=== PATIENT | female | born 1975 ===

== ENCOUNTER 2018-02-27 14:30 | Emergency (ER) | payer MEDICAID ==
[2018-02-27] MEDS ORDERED: Sodium Chloride 0.9% 1,000 ML IV SCH ×2 (15:15→18:15)
[2018-02-27 15:35] LABS: BASO % 0.4 % (0.0-2.0); EOS % 0.7 % (0.0-4.0); HEMOGLOBIN 11.7 g/dL (12.0-16.0); LYMPH # 1.4 K/uL (1.0-4.3); LYMPH % 19.3 % (20.0-40.0); MEAN CELL VOLUME 80.6 fl (81.0-99.0); MEAN CORPUSCULAR HGB CONC 33.5 g/dL (33.0-37.0); MEAN PLATELET VOLUME 8.3 fl (7.2-11.7); MONO # 0.5 K/uL (0.0-0.8); MONO % 7.1 % (0.0-10.0); NEUT # 5.2 K/uL (1.8-7.0); NEUT % 72.5 % (50.0-75.0); RBC 4.34 Mil/uL (3.80-5.20); RED CELL DISTRIBUTION WIDTH 14.8 % (11.5-14.5); WHITE BLOOD COUNT 7.2 K/uL (4.8-10.8)
[2018-02-27 15:45] LABS: ACETAMINOPHEN < 10.0 ug/ml (10.0-30.0); ALBUMIN 3.3 g/dL (3.5-5.0); ALT/SGPT 49 U/L (9-52); AST/SGOT 31 U/L (14-36); BLOOD UREA NITROGEN 7 mg/dl (7-17); CALCIUM 8.5 mg/dL (8.4-10.2); GFR AFRICAN-AMERICAN > 60; GFR NON-AFRICAN AMERICAN > 60; LIPASE 35 U/L (23-300); SALICYLATE < 1.0 mg/dl
[2018-02-27 15:52] LABS: PARTIAL THROMBOPLASTIN TIME 25.4 Seconds (25.6-37.1); PROTHROMBIN TIME 11.2 Seconds (9.8-13.1)
[2018-02-27] MEDS ORDERED: Potassium Chloride 20 mEq/15 ml LIQ UD PO ONE (16:05)
--- NOTE | 2018-02-27 16:13 | CT ---
PROCEDURE: CT HEAD WITHOUT CONTRAST. HISTORY: dizziness COMPARISON: None available. TECHNIQUE: Axial computed tomography images were obtained through the head/brain without intravenous contrast. Radiation dose: Total exam DLP = 764.4 mGy-cm. This CT exam was performed using one or more of the following dose reduction techniques: Automated exposure control, adjustment of the mA and/or kV according to patient size, and/or use of iterative reconstruction technique. FINDINGS: HEMORRHAGE: No intracranial hemorrhage. BRAIN: No mass effect or edema. No atrophy or chronic microvascular ischemic changes. VENTRICLES: Unremarkable. No hydrocephalus. CALVARIUM: Unremarkable. PARANASAL SINUSES: Non pneumatization of the right frontal sinus. No significant inflammatory changes. MASTOID AIR CELLS: Unremarkable as visualized. No inflammatory changes. OTHER FINDINGS: None. IMPRESSION: No acute intracranial pathology.
--- NOTE | 2018-02-27 16:23 | RAD ---
HISTORY: weakness COMPARISON: No prior. TECHNIQUE: Chest PA and lateral FINDINGS: LUNGS: No active pulmonary disease. PLEURA: No significant pleural effusion identified. No pneumothorax apparent. CARDIOVASCULAR: Normal. OSSEOUS STRUCTURES: No significant abnormalities. VISUALIZED UPPER ABDOMEN: Normal. OTHER FINDINGS: None. IMPRESSION: No active disease.
[2018-02-27] MEDS ORDERED: Potassium Chloride 20 mEq ER Tab PO ONE (16:46)
--- NOTE | 2018-02-27 16:48 | ED PDOC ---
HPI: General Adult Time Seen by Provider: 02/27/18 14:54 Chief Complaint (Nursing): Weakness/Neurological Deficit Chief Complaint (Provider): Weakness, Dizziness History Per: Patient, Family () History/Exam Limitations: no limitations Onset/Duration Of Symptoms: Hrs (x1) Current Symptoms Are (Timing): Still Present Additional Complaint(s): 43 y/o female, with a pmhx of type II diabetes and high cholesterol, presents for evaluation of feeling weak and dizzy x1 hour. Patient reports sudden onset of symptoms while cooking and association of symptoms with nausea. at bedside reports that patients blood sugar has been in 400s recently and that today she doubled her Metformin dosage (taking 1000mg BID instead of 500mg). Patient denies fever, headache, vomiting, diarrhea, chest or abdominal pain, changes in vision, numbness, back pain, or urinary symptoms, or sick contacts. Patient denies taking medication for her symptoms prior to arrival. Of note, patient arrived via EMS who report suspicion of drug use. LMP: now PMD: In [place] Past Medical History Reviewed: Historical Data, Nursing Documentation, Vital Signs Vital Signs: Last Vital Signs Temp 98.2 F 02/27/18 19:21 Pulse 104 H 02/27/18 19:21 Resp 20 02/27/18 19:21 BP 112/66 02/27/18 19:21 Pulse Ox 98 03/01/18 00:14 - Medical History PMH: Diabetes (type II), Hypercholesterolemia - Surgical History Surgical History: Cholecystectomy, (x6) Other surgeries: carpal tunnel - Family History Family History: States: Unknown Family Hx - Social History Current smoker - smoking cessation education provided: No Alcohol: None Drugs: Denies - Home Medications Home Medications: Ambulatory Orders Medication Instructions Recorded Meclizine [Meclizine*] 25 mg PO Q6 PRN #12 tab 02/27/18 Metoclopramide HCl [Reglan] 10 mg PO Q6 PRN #10 tablet 02/27/18 - Allergies Allergies/Adverse Reactions: Allergies Allergy/AdvReac Type Severity Reaction Status Date / Time No Known Allergies Allergy Verified 02/27/18 14:32 Review of Systems ROS Statement: Except As Marked, All Systems Reviewed And Found Negative Constitutional: Negative for: Fever Eyes: Negative for: Vision Change Cardiovascular: Negative for: Chest Pain Gastrointestinal: Positive for: Nausea. Negative for: Vomiting, Abdominal Pain , Diarrhea Genitourinary Female: Negative for: Dysuria, Frequency, Incontinence Musculoskeletal: Negative for: Back Pain Neurological: Positive for: Weakness, Dizziness. Negative for: Numbness, Headache Physical Exam - Reviewed Nursing Documentation Reviewed: Yes Vital Signs Reviewed: Yes - Physical Exam Comments: GENERALIZED APPEARANCE: Patient is somnolent, oriented x3, uncomfortable. (+) Obesity SKIN: Warm, dry; (-) cyanosis. HEAD: (-) scalp swelling or tenderness. EYES: (-) conjunctival pallor. Pupils equal and reactive. ENMT: Mucous membranes dry. Pharynx clear, uvula midline (-) erythema (-) exudate. Airway patent, (-) stridor. (-) Cerumen impaction bilaterally. TMs (-) erythema (-) bulging. NECK: Supple, FROM (-) tenderness, (-) stiffness, (-) lymphadenopathy. CHEST AND RESPIRATORY: (-) rales, (-) rhonchi, (-) wheezes; breath sounds equal bilaterally. Respirations even and nonlabored. HEART AND CARDIOVASCULAR: (-) irregularity; (-) murmur, (-) gallop. ABDOMEN AND GI: Soft; (-) distention, (-) tenderness, (-) rebound, (-) guarding , (-) palpable masses, (-) flank tenderness. EXTREMITIES: (-) deformity; (-) edema. Distal pulses: present. NEURO AND PSYCH: Mental status as above. shrinker: (-) nystagmus; EOMI and painless, (-) facial asymmetry; tongue midline. Strength symmetric. - Laboratory Results Result Diagrams: 02/27/18 15:28 02/27/18 15:28 Urine POC: Negative Urine dip results: Positive for: Blood (large (patient currently menstruating)) , Nitrate (Positive), Glucose (500), Protein (30). Negative for: Leukocyte Esterase, Ketones, Bilirubin - ECG O2 Sat by Pulse Oximetry: 98 (RA) Pulse Ox Interpretation: Normal Medical Decision Making Medical Decision Making: Impression: Weakness, Dizziness Plan: --CT head w/o contrast --EKG --Acetaminophen level --Alcohol serum --Ammonia --CMP --Drug screen --Lact acid, plasma --Lipase --Salicylate level --Urine --Troponin I --CBC --PTT/PT --CXR --Glucose, Blood, POC --Antivert 50mg PO --1LNS --Reglan 10mg IVP --case monitor --IV insertion --Reevaluation EKG: NSR at 96 bpm, no ST elevations, QTC 497 16:12 CT HEAD FINDINGS: HEMORRHAGE: No intracranial hemorrhage. BRAIN: No mass effect or edema. No atrophy or chronic microvascular ischemic changes. VENTRICLES: Unremarkable. No hydrocephalus. CALVARIUM: Unremarkable. PARANASAL SINUSES: Non pneumatization of the right frontal sinus. No significant inflammatory changes. MASTOID AIR CELLS: Unremarkable as visualized. No inflammatory changes. OTHER FINDINGS: None. IMPRESSION: No acute intracranial pathology. 16:21 CHEST X-RAY FINDINGS: LUNGS: No active pulmonary disease. PLEURA: No significant pleural effusion identified. No pneumothorax apparent. CARDIOVASCULAR: Normal. OSSEOUS STRUCTURES: No significant abnormalities. VISUALIZED UPPER ABDOMEN: Normal. OTHER FINDINGS: None. IMPRESSION: No active disease. 16:45 Labs reviewed, 3.1 Potassium. Potassium Chloride 20meq PO ordered. Patient with 1 episode of vomiting in ED. Reports continued nausea, but mild improvement of dizziness. Now reporting LUQ abdominal tenderness. Will order CT abdomen/pelvis with IV contrast. 1815 Patient resting comfortably at this time. Symptoms improved but still with LUQ and epigastric tenderness. Pending CT evaluation. Additional 1L NS bolus ordered. [address] scan. Udip reviewed, (+) nitrates. Urinalysis and urine culture ordered. Patient denies urinary symptoms. 1940 CT reviewed, radiology report follows EXAM: CT Abdomen and Pelvis With Intravenous Contrast EXAM DATE/TIME: 02/27/2018 4:47 PM CLINICAL HISTORY: 43 years old, female; Pain; Abdominal pain; Localized; Left; Prior surgery; Surgery date: 6+ months; Surgery type: Cholecystectomy; Patient HX: Generalized abd pain; Most pain lt side. Cholecystectomy 2003; Additional info: Epigastric, luq pain TECHNIQUE: Axial computed tomography images of the abdomen and pelvis with intravenous contrast. All CT scans at this facility use one or more dose reduction techniques, viz.: automated exposure control; ma/kV adjustment per patient size (including targeted exams where dose is matched to indication; i.e. head); or iterative reconstruction technique. CONTRAST: 98 mL of OMNIPAQUE administered intravenously. COMPARISON: No relevant prior studies available. FINDINGS: Lung bases: Unremarkable. No mass. No consolidation. ABDOMEN: Liver: Diffuse hepatic steatosis with hepatomegaly. Gallbladder and bile ducts: Cholecystectomy. No ductal dilation. Pancreas: Unremarkable. No mass. No ductal dilation. Spleen: Splenomegaly measures 13.8 cm. Small 0.7 cm hypodensity in the spleen is likely a cyst or hemangioma. Adrenals: Unremarkable. No mass. Kidneys and ureters: Unremarkable. No solid mass. No hydronephrosis. Stomach and bowel: Unremarkable. No obstruction. No mucosal thickening. PELVIS: Appendix: No findings to suggest acute appendicitis. Bladder: Unremarkable. No mass. Reproductive: Unremarkable as visualized. ABDOMEN and PELVIS: Intraperitoneal space: Unremarkable. No free air. No significant fluid collection. Bones/joints: No acute fracture. No dislocation. Soft tissues: Unremarkable. Vasculature: Unremarkable. No abdominal aortic aneurysm. Lymph nodes: Unremarkable. No enlarged lymph nodes. IMPRESSION: 1. Diffuse hepatic steatosis with hepatomegaly. Otherwise no acute obstructive or inflammatory process in the abdomen or pelvis. 2. Splenomegaly measures 13.8 cm. No perisplenic fluid. Thank you for allowing us to participate in the care of your patient. Dictated and Authenticated by: Gerardo Greer MD 02/27/2018 7:34 PM Eastern Time ([place] & [place]) 1940 Repeat BP: 112/66 On re-evaluation, patient reports resolution of symptoms. On exam, patient remains AAOx3, in no acute distress. Lungs clear to auscultation, cardiac RRR, abdomen soft, non-tender, repeat neuro exam shows no focal findings. Patient ambulating in ED with a steady, unassisted gait. Vitals stable, stable for discharge. Lab/Diagnostic results d/w the patient in great detail. Diagnosis of malaise, dizziness, abdominal pain, near syncope d/w the patient. Based on history, exam and diagnostic results, plan will be for outpatient follow up. Patient instructed to follow-up with pmd / referral provided / the clinic in 1- 2 days without fail. Advised to take medication as prescribed. Return to the emergency room at any time for any new or worsening symptoms. Patient states she fully agrees with and understands discharge instructions. States that she agrees with the plan and disposition. Verbalized and repeated discharge instructions and plan. I have given the patient opportunity to ask any additional questions. ----- Scribe Attestation: Documented by Marvin Cook, acting as a scribe for Ivett Geiger PA-C. Provider Scribe Attestation: All medical record entries made by the Scribe were at my direction and personally dictated by me. I have reviewed the chart and agree that the record accurately reflects my personal performance of the history, physical exam, medical decision making, and the department course for this patient. I have also personally directed, reviewed, and agree with the discharge instructions and disposition. Disposition - Clinical Impression Clinical Impression: Weakness, Dizziness, Abdominal pain, Near syncope, Hyperglycemia - Patient ED Disposition Is Patient to be Admitted: No Counseled Patient/Family Regarding: Studies Performed, Diagnosis, Need For Followup, Rx Given - Disposition Referrals: [facility] [Outside] Cameron Couch MD [Staff Provider] - Disposition: Routine/Home Disposition Time: 19:54 Condition: FAIR Additional Instructions: FOLLOW UP WITH GI/CLINIC IN 1-2 DAYS WITHOUT FAIL FOR FURTHER EVALUATION OF SYMPTOMS AND HYPERGLYCEMIA. RETURN TO ED WITH ANY NEW OR WORSENING SYMPTOMS. Prescriptions: Meclizine [Meclizine*] 25 mg PO Q6 PRN #12 tab PRN Reason: Dizziness Metoclopramide HCl [Reglan] 10 mg PO Q6 PRN #10 tablet PRN Reason: Nausea/Vomiting Instructions: Hyperglycemia, Adult, Acute Abdomen (Belly Pain), Blood Glucose Monitoring, The ABCs of Diabetes, Dizziness, Nonvertigo, (DC), Diabetes and Diet , Near Fainting, Weakness (ED) Forms: [employer] (Indonesian) Print Language: [place] - POA Present On Arrival: Poor Glycemic Control Results - Lab Results Lab Results: 02/27/18 02/27/18 02/27/18 19:45 18:05 15:28 WBC RBC Hgb Hct MCV MCH MCHC RDW Plt Count MPV Neut % (Auto) Lymph % (Auto) [place] % (Auto) Eos % (Auto) Baso % (Auto) Neut # (Auto) Lymph # (Auto) [place] # (Auto) Eos # (Auto) Baso # (Auto) PT INR APTT Sodium Potassium Chloride Carbon Dioxide Anion Gap BUN Creatinine Est GFR ( Amer) Est GFR (Non-Af Amer) POC Glucose (mg/dL) Random Glucose Lactic Acid Calcium Total Bilirubin AST ALT Alkaline Phosphatase Ammonia Troponin I Total Protein Albumin Globulin Albumin/Globulin Ratio Lipase Urine Color Yellow Urine Clarity Slighty-cloudy Urine pH 6.0 Ur Specific [place] 1.044 H Urine Protein Negative Urine Glucose (UA) 50 Urine Ketones Negative Urine Blood Large Urine Nitrate Negative Urine Bilirubin Negative Urine Urobilinogen 0.2-1.0 Ur Leukocyte Esterase Neg Urine RBC (Auto) 5 H Urine Microscopic WBC 2 Ur Squamous Epith Cells 4 Urine Bacteria Rare Salicylates < 1.0 Urine Opiates Screen Negative Urine Methadone Screen Negative Acetaminophen < 10.0 L Ur Barbiturates Screen Negative Ur Phencyclidine Scrn Negative Ur Amphetamines Screen Negative U Benzodiazepines Scrn Negative U Oth Cocaine Metabols Negative U Cannabinoids Screen Negative Alcohol, Quantitative 02/27/18 02/27/18 02/27/18 15:28 15:28 15:28 WBC 7.2 RBC 4.34 Hgb 11.7 L Hct 35.0 MCV 80.6 L MCH 27.0 MCHC 33.5 RDW 14.8 H Plt Count 214 MPV 8.3 Neut % (Auto) 72.5 Lymph % (Auto) 19.3 L [place] % (Auto) 7.1 Eos % (Auto) 0.7 Baso % (Auto) 0.4 Neut # (Auto) 5.2 Lymph # (Auto) 1.4 [place] # (Auto) 0.5 Eos # (Auto) 0.0 Baso # (Auto) 0.0 PT 11.2 INR 1.0 APTT 25.4 L Sodium 137 Potassium 3.1 L Chloride 103 Carbon Dioxide 23 Anion Gap 14 BUN 7 Creatinine 0.4 L Est GFR ( Amer) > 60 Est GFR (Non-Af Amer) > 60 POC Glucose (mg/dL) Random Glucose 274 H Lactic Acid Calcium 8.5 Total Bilirubin 0.4 AST 31 ALT 49 Alkaline Phosphatase 81 Ammonia Troponin I < 0.0120 Total Protein 6.5 Albumin 3.3 L Globulin 3.2 Albumin/Globulin Ratio 1.0 Lipase 35 Urine Color Urine Clarity Urine pH Ur Specific [place] Urine Protein Urine Glucose (UA) Urine Ketones Urine Blood Urine Nitrate Urine Bilirubin Urine Urobilinogen Ur Leukocyte Esterase Urine RBC (Auto) Urine Microscopic WBC Ur Squamous Epith Cells Urine Bacteria Salicylates Urine Opiates Screen Urine Methadone Screen Acetaminophen Ur Barbiturates Screen Ur Phencyclidine Scrn Ur Amphetamines Screen U Benzodiazepines Scrn U Oth Cocaine Metabols U Cannabinoids Screen Alcohol, Quantitative < 10 02/27/18 02/27/18 02/27/18 15:25 15:25 15:06 WBC RBC Hgb Hct MCV MCH MCHC RDW Plt Count MPV Neut % (Auto) Lymph % (Auto) [place] % (Auto) Eos % (Auto) Baso % (Auto) Neut # (Auto) Lymph # (Auto) [place] # (Auto) Eos # (Auto) Baso # (Auto) PT INR APTT Sodium Potassium Chloride Carbon Dioxide Anion Gap BUN Creatinine Est GFR ( Amer) Est GFR (Non-Af Amer) POC Glucose (mg/dL) 253 H Random Glucose Lactic Acid 2.9 H Calcium Total Bilirubin AST ALT Alkaline Phosphatase Ammonia 17 Troponin I Total Protein Albumin Globulin Albumin/Globulin Ratio Lipase Urine Color Urine Clarity Urine pH Ur Specific [place] Urine Protein Urine Glucose (UA) Urine Ketones Urine Blood Urine Nitrate Urine Bilirubin Urine Urobilinogen Ur Leukocyte Esterase Urine RBC (Auto) Urine Microscopic WBC Ur Squamous Epith Cells Urine Bacteria Salicylates Urine Opiates Screen Urine Methadone Screen Acetaminophen Ur Barbiturates Screen Ur Phencyclidine Scrn Ur Amphetamines Screen U Benzodiazepines Scrn U Oth Cocaine Metabols U Cannabinoids Screen Alcohol, Quantitative
[2018-02-27] MEDS ORDERED: Iohexol 300 100 ML IJ ONE (17:46)
[2018-02-27] MEDS ORDERED: Sodium Chloride 0.9% 50 ML IV ONE (17:46)
[2018-02-27 18:43] LABS: BARBITURATES, UR NEGATIVE (NEGATIVE); BENZODIAZEPINES, UR NEGATIVE (NEGATIVE); OPIATES, UR NEGATIVE (NEGATIVE); PHENCYCLIDINE, UR NEGATIVE (NEGATIVE)
[2018-02-27 19:22] VITALS: BP 112/66; PULSE 104; RESP 20; TEMP 98.2
[2018-02-27 19:44] VITALS: O2SAT 98
[2018-02-27 20:19] LABS: SQUAMOUS EPITHIAL 4 /hpf (0-5); URINE BACTERIA RARE (<OCC); URINE BILIRUBIN NEGATIVE (NEGATIVE); URINE BLOOD LARGE (NEGATIVE); URINE CLARITY SLIGHTY-CLOUDY (Clear); URINE COLOR YELLOW (YELLOW); URINE GLUCOSE (UA) 50 mg/dL (Normal); URINE LEUKOCYTE ESTERASE NEG Leu/uL (Negative); URINE PROTEIN NEGATIVE (NEGATIVE); URINE UROBILINOGEN 0.2-1.0 mg/dL (0.2-1.0)
--- NOTE | 2018-02-28 09:48 | CT ---
PROCEDURE: CT Abdomen and Pelvis with contrast HISTORY: epigastric, LUQ pain COMPARISON: None. TECHNIQUE: Following the intravenous administration of iodinated contrast material, a CT examination of the abdomen and pelvis performed from the domes of the diaphragms to the symphysis pubis with reformatted datasets provided not only axial but also sagittal and coronal planes. Oral contrast was not administered as per referring physician request. Contrast dose: Omnipaque 300, 90 cc Radiation dose: Total exam DLP = 1747.98 mGy-cm. This CT exam was performed using one or more of the following dose reduction techniques: Automated exposure control, adjustment of the mA and/or kV according to patient size, and/or use of iterative reconstruction technique. FINDINGS: LOWER THORAX: Limited bilateral basilar dependent atelectasis identified with trace pericardial effusion evident anteriorly. No pleural effusion bilaterally. LIVER: Prominent lucency throughout the liver suggests hepatic steatosis. No focal hepatic mass or intrahepatic biliary duct dilatation identified. Borderline hepatomegaly. GALLBLADDER AND BILE DUCTS: Prior cholecystectomy. No prominent extrahepatic biliary tree dilatation appreciated. PANCREAS: Unremarkable. No gross lesion or ductal dilatation. SPLEEN: Splenomegaly to 13.8 cm. A 7 mm lucency is seen in the medial spleen, poorly characterized due to small size. This may represent a small cyst or meningioma. ADRENALS: Unremarkable. No mass. KIDNEYS AND URETERS: Unremarkable. No hydronephrosis. No solid mass. VASCULATURE: Unremarkable. No aortic aneurysm. BOWEL: Unremarkable. No obstruction. No gross mural thickening. APPENDIX: Normal appendix. PERITONEUM: Unremarkable. No free fluid. No free air. LYMPH NODES: Unremarkable. No enlarged lymph nodes. BLADDER: Unremarkable. REPRODUCTIVE: Unremarkable. BONES: No acute fracture. OTHER FINDINGS: None. IMPRESSION: 1. Borderline hepatomegaly. Prominent hepatic steatosis identified. 2. Splenomegaly to 13.8 cm. 3. Incidental trace pericardial effusion anteriorly. Concordant preliminary report from [facility], 02/27/2018.
--- NOTE | 2018-03-01 09:56 | CARD ---
APPROVED REPORT EKG Measurement Heart [id number] <Conclusion> Normal sinus rhythm Possible Inferior infarct, age undetermined Abnormal ECG
== END 2018-02-27 20:10 | disposition home or self-care (01) ==
LOC: H.ER 14:30
DX: R53.1 Weakness (principal); R42 Dizziness and giddiness; R10.9 Unspecified abdominal pain; R55 Syncope and collapse; E11.65 Type 2 diabetes mellitus with hyperglycemia; E78.00 Pure hypercholesterolemia, unspecified; Z90.49 Acquired absence of other specified parts of digestive tract
CPT/HCPCS: 70450; 71046; 74177; 80053; 81003; 81025; 82140; 82948; 83605; 83690; 84484; 85025; 85610; 85730; 87086; 93005; 96374; 99285; G0480; J2765; J7030; Q9967